=== PATIENT | female | born 2005 | race Caucasian/White ===

== ENCOUNTER 2024-06-28 16:55 | Inpatient (IN) ==
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
[2024-06-28 17:44] LABS: Hemoglobin 14.7 g/dl (12.0-16.0); Mean Corpuscular Hemoglobin 30.8 pg (25.0-34.0); Mean Corpuscular Hgb Conc 36.8 g/dL (32.0-36.0); Mean Corpuscular Volume 83.9 fL (80.0-100.0); Mean Platelet Volume 9.4 fL (9.4-12.4); Platelet Count 456 K/uL (130-400); RDW Coefficient of Variation 11.6 % (11.5-14.5); RDW Standard Deviation 35.2 fL (36.4-46.3); Red Blood Count 4.77 M/uL (4.20-5.40); White Blood Count 13.86 K/ul (4.8-10.8)
[2024-06-28 17:56] LABS: Pregnancy Test, Serum Negative (Negative)
[2024-06-28 18:00] LABS: Albumin Globulin Ratio 1.8 (0.9-2); BUN Creatinine Ratio 14.1 (10-20); Bilirubin,Total 0.7 mg/dl (0.2-1.0); Calcium 9.7 mg/dl (8.6-10.3); Creatinine Clr Calc Pharmacy 104.5 ml/min; Globulin 2.8 gm/dl (2.5-4.0); Potassium 3.7 mmol/L (3.5-5.1); Total Protein 7.8 gm/dl (6.0-8.3)
[2024-06-28 18:07] LABS: Basophils # (auto) 0.04 K/uL (0.00-0.20); Basophils % (auto) 0.3 %; Eosinophils # (auto) 0.01 K/uL (0.00-0.50); Eosinophils % (auto) 0.1 %; Immature Granulocytes # (auto) 0.06 K/uL (0.01-0.20); Immature Granulocytes % (auto) 0.4 %; Lymphocytes # (auto) 0.78 K/uL (1.20-3.40); Lymphocytes % (auto) 5.6 %; Monocytes # (auto) 0.48 K/uL (0.11-0.59); Monocytes % (auto) 3.5 %; Neutrophils # (auto) 12.49 K/uL (1.40-6.50); Neutrophils % (auto) 90.1 %; RBC Morphology Unremarkable
[2024-06-28 18:08] LABS: Acetaminophen < 3 ug/ml (10-30); Salicylate < 3.0 mg/dl (3.0-30)
[2024-06-28 18:15] LABS: Thyroid Stimulating Hormone 1.247 uIu/ml (0.300-4.500)
[2024-06-28 20:40] LABS: Amphetamines+Metham, Urine Neg (Neg); Barbiturates, Urine Neg (Neg); Benzodiazepine, Urine Neg (Neg); Cocaine, Urine Neg (Neg); Fentanyl, Urine Neg (Neg); MDMA (Ecstacy), Urine Neg (Neg); Marijuana, Urine Pos (Neg); Methadone, Urine Neg (Neg); Opiate, Urine Neg (Neg); Phencyclidine, Urine Neg (Neg)
[2024-06-28 20:42] LABS: Amorphous Sediment Urine Present (None Prsent); Appearance Urine Turbid (Clear); Bacteria Urine Automated 1+ (None Seen); Bilirubin Urine Negative (Negative); Blood Urine Negative (Negative); Cast Urine Automated 0-2 /lpf (0-2); Color Urine Dark Yellow; Glucose Urine UA Negative (Negative); Ketones Urine 4+ (Negative); Leukocyte Esterase Urine Trace (Negative); Mucus Urine Present (None Prsent); Nitrite Urine Negative (Negative); Protein Urine Trace (Negative); Specific Gravity Urine 1.026 (1.000-1.030); Urobilinogen Urine Negative (Negative); pH Urine 7.5 (4.5-7.5)
[2024-06-28] MEDS: cephALEXin 250 MG CAP PO ONE (20:59)
[2024-06-28] MEDS ORDERED: BISMUTH SUBSALICYLATE 262 MG CHEW PO PRN (23:54)
[2024-06-28] MEDS ORDERED: SODIUM CHLORIDE 0.65% NA SOLN 45 ML (OCEAN) PRN (23:54)
[2024-06-28] MEDS ORDERED: ALUMINUM/MAGNESIUM SUSP 30 ML UDC PO PRN (23:54)
[2024-06-28] MEDS ORDERED: MAGNESIUM HYDROXIDE SUSP 30 ML UDC PO PRN (23:54)
[2024-06-28] MEDS ORDERED: hydrOXYzine HCl 25 MG TAB PO PRN (23:54)
[2024-06-28] MEDS ORDERED: ACETAMINOPHEN 325 MG TAB PO PRN (23:54)
[2024-06-29] MEDS: hydrOXYzine HCl 25 MG TAB PO PRN (00:11)
[2024-06-29] MEDS: NICOTINE 21 MG/24 HR TDSY TD SCH (10:01)
--- NOTE | 2024-06-29 11:15 | Electrocardiogram Report ---
Test Reason : Blood Pressure : */* mmHG Vent. Rate : 77 BPM Atrial Rate : 77 BPM P-R Int : 126 ms QRS Dur : 80 ms QT Int : 388 ms P-R-T Axes : 67 85 55 degrees QTcB Int : 439 ms Normal sinus rhythm with sinus arrhythmia Normal ECG No previous ECGs available Confirmed by Staci Haile (Denise) on 06/29/2024 11:15:03 AM Referred By: REFERRED SELF Confirmed By: Staci Haile
[2024-06-29] MEDS: ESCITALOPRAM OXALATE 10 MG TAB PO SCH (12:53)
[2024-06-29] MEDS: NICOTINE POLACRILEX 2 MG GUM MT PRN (14:11)
[2024-06-29] MEDS: cephALEXin 500 MG CAP PO SCH (14:34)
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
[2024-07-01 12:32] LABS: Marijuana Quant, GCMS Urine 224 ng/mL (<5)
== END 2024-07-01 10:47 | disposition home or self-care (01) | DRG 881 ==
LOC: ED 16:55 → MERGE 22:15 → 3S 22:15